=== PATIENT | female | born 1985 | race Caucasian/White ===

== ENCOUNTER 2019-01-25 09:20 | Emergency (ER) | payer OTHER ==
[2019-01-25 09:26] VITALS: RESP 18; TEMP 98.1
[2019-01-25] MEDS ORDERED: DIAZEPAM 5 MG/ML 2 ML INJ IM ONE (09:56)
[2019-01-25] MEDS ORDERED: KETOROLAC 30 MG/ML 1 ML VIAL IM STA (09:56)
--- NOTE | 2019-01-25 09:58 | ED ---
General Adult HPI - General Chief complaint: Back Pain/Injury Stated complaint: RT FLANK PAIN Time Seen by Provider: 01/25/19 09:36 Source: patient Mode of arrival: ambulatory Limitations: no limitations - History of Present Illness Initial comments: Dictation was produced using [employer] dictation software. please excuse any grammatical, word or spelling errors. Chief Complaint: 33-year-old female past medical history of fibromyalgia, and unspecified muscle spasm disorder presents with right-sided back pain. History of Present Illness: 33-year-old female presents with right-sided back pain for the last 4 days. She states that the pain radiates to her anterior right chest with radiation to the abdomen. Patient states worse with palpation and varus movements. She describes it as sharp. Denies any nausea, vomiting or abdominal symptoms. Denies any constitutional symptoms. The ROS documented in this emergency department record has been reviewed and confirmed by me. Those systems with pertinent positive or negative responses have been documented in the HPI. All other systems are other negative and/or noncontributory. PHYSICAL EXAM: General Impression: Alert and oriented x3, not in acute distress HEENT: Normocephalic atraumatic, extra-ocular movements intact, pupils equal and reactive to light bilaterally, mucous membranes moist. Cardiovascular: Heart regular rate and rhythm, S1&S2 audible, no murmurs, rubs or gallops Chest: Lungs clear to auscultation bilaterally, no rhonchi, no wheeze, no rales Abdomen: Bowel sounds present, abdomen soft, non-tender, non-distended, no organomegaly Musculoskeletal: Pulses present and equal in all extremities, no peripheral edema, tenderness to palpation over the right flank, right back and anterior chest Motor: no focal deficits noted Neurological: CN II-XII grossly intact, no focal motor or sensory deficits noted Skin: Intact with no visualized rashes Psych: Normal affect and mood ED course: 33-year-old female presents with musculoskeletal strain versus possible skeletal spasm. Vital signs upon arrival shows heart rate of 106, rest of vital signs within acceptable limits. Patient has bilateral tubal ligation. Labs and imaging obtained showing no acute processes. Patient given IM analgesia. She is observed in emergency department with improvement of symptoms. Patient told to follow up PCP. Return parameters discussed. EKG interpretation: Ventricular rate 3, normal sinus rhythm, AZ interval 150, QS 90, QTc 458. No AZ prolongation, no QTC prolongation, no ST or T-wave changes noted. Overall, this EKG is unremarkable - Related Data Home Medications Medication Instructions Recorded Confirmed Ibuprofen [Motrin Ib] 800 mg PO Q6H PRN 01/25/19 01/25/19 Previous Rx's Medication Instructions Recorded Acetaminophen [Tylenol] 1,000 mg PO Q4-6H PRN #24 tab 01/25/19 Ibuprofen [Motrin] 600 mg PO Q6HR PRN #24 tab 01/25/19 Allergies Allergy/AdvReac Type Severity Reaction Status Date / Time tizanidine HCl Allergy Unknown Verified 01/25/19 09:51 [From Zanaflex] tramadol Allergy Unknown Verified 01/25/19 09:51 vilazodone HCl [From Viibryd] Allergy Unknown Verified 01/25/19 09:51 Review of Systems ROS Statement: Those systems with pertinent positive or pertinent negative responses have been documented in the HPI. ROS Other: All systems not noted in ROS Statement are negative. Past Medical History Past Medical History: Fibromyalgia, Osteoarthritis (OA), Thyroid Disorder Additional Past Medical History / Comment(s): DJD chronic back pain, gout, IBS. restless leg syndrome History of Any Multi-Drug Resistant Organisms: None Reported Past Surgical History: Section, Tubal Ligation Past Psychological History: Anxiety, Depression Smoking Status: Current every day smoker Past Alcohol Use History: Occasional Past Drug Use History: None Reported General Exam Limitations: no limitations Course Vital Signs 01/25/19 09:24 Temperature 98.1 F Pulse Rate 106 H Respiratory 18 Rate Blood Pressure 127/87 O2 Sat by Pulse 99 Oximetry Medical Decision Making - Lab Data Result diagrams: 01/25/19 10:03 01/25/19 10:03 Lab Results 01/25/19 01/25/19 Range/Units 10:03 10:03 WBC 10.5 (3.8-10.6) k/uL RBC 5.19 (3.80-5.40) m/uL Hgb 15.4 (11.4-16.0) gm/dL Hct 45.4 (34.0-46.0) % MCV 87.5 (80.0-100.0) fL MCH 29.7 (25.0-35.0) pg MCHC 33.9 (31.0-37.0) g/dL RDW 12.6 (11.5-15.5) % Plt Count 377 (150-450) k/uL Neutrophils % 70 % Lymphocytes % 19 % Monocytes % 5 % Eosinophils % 4 % Basophils % 1 % Neutrophils # 7.3 (1.3-7.7) k/uL Lymphocytes # 2.0 (1.0-4.8) k/uL Monocytes # 0.5 (0-1.0) k/uL Eosinophils # 0.5 (0-0.7) k/uL Basophils # 0.1 (0-0.2) k/uL Sodium 140 (137-145) mmol/L Potassium 4.2 (3.5-5.1) mmol/L Chloride 105 (98-107) mmol/L Carbon Dioxide 28 (22-30) mmol/L Anion Gap 7 mmol/L BUN 9 (7-17) mg/dL Creatinine 0.70 (0.52-1.04) mg/dL Est GFR (CKD-EPI)AfAm >90 (>60 ml/min/1.73 sqM) Est GFR (CKD-EPI)NonAf >90 (>60 ml/min/1.73 sqM) Glucose 99 (74-99) mg/dL Calcium 9.8 (8.4-10.2) mg/dL Total Bilirubin 0.5 (0.2-1.3) mg/dL AST 14 (14-36) U/L ALT 25 (9-52) U/L Alkaline Phosphatase 56 (38-126) U/L Total Protein 7.4 (6.3-8.2) g/dL Albumin 4.2 (3.5-5.0) g/dL Disposition Clinical Impression: Back strain Disposition: HOME SELF-CARE Condition: Good Instructions (If sedation given, give patient instructions): Acute Low Back Pain (ED) Prescriptions: Ibuprofen [Motrin] 600 mg PO Q6HR PRN #24 tab PRN Reason: Pain Acetaminophen [Tylenol] 1,000 mg PO Q4-6H PRN #24 tab PRN Reason: Pain Is patient prescribed a controlled substance at d/c from ED?: No Referrals: Jason Melvin MD [Primary Care Provider] - 1-2 days Time of Disposition: 11:46
[2019-01-25 10:20] LABS: Basophils # (A) 0.1 k/uL (0-0.2); Basophils % (A) 1 %; Eosinophils # (A) 0.5 k/uL (0-0.7); Eosinophils % (A) 4 %; HCT 45.4 % (34.0-46.0); HGB 15.4 gm/dL (11.4-16.0); Lymphocytes % (A) 19 %; MCH 29.7 pg (25.0-35.0); MCHC 33.9 g/dL (31.0-37.0); MCV 87.5 fL (80.0-100.0); Mean Platelet Volume 6.8; Monocytes # (A) 0.5 k/uL (0-1.0); Monocytes % (A) 5 %; Neutrophils # (A) 7.3 k/uL (1.3-7.7); Neutrophils % (A) 70 %; Platelet Count 377 k/uL (150-450); RBC 5.19 m/uL (3.80-5.40); RDW 12.6 % (11.5-15.5); WBC 10.5 k/uL (3.8-10.6)
[2019-01-25 10:28] LABS: ALT 25 U/L (9-52); AST 14 U/L (14-36); Albumin 4.2 g/dL (3.5-5.0); Alkaline Phosphatase 56 U/L (38-126); Anion Gap 7 mmol/L; Blood Urea Nitrogen 9 mg/dL (7-17); Calcium 9.8 mg/dL (8.4-10.2); Carbon Dioxide 28 mmol/L (22-30); Chloride 105 mmol/L (98-107); Glucose 99 mg/dL (74-99); Potassium 4.2 mmol/L (3.5-5.1); Sodium 140 mmol/L (137-145); Total Bilirubin 0.5 mg/dL (0.2-1.3); Total Protein 7.4 g/dL (6.3-8.2)
--- NOTE | 2019-01-25 10:41 | XR ---
EXAMINATION TYPE: XR chest 2V DATE OF EXAM: 01/25/2019 COMPARISON: NONE HISTORY: Chest pain TECHNIQUE: Frontal and lateral views of the chest are obtained. FINDINGS: There is no focal air space opacity, pleural effusion, or pneumothorax seen. The cardiac silhouette size is within normal limits. There is a mild spinal curvature. There is thoracic spondylo sis. The osseous structures are intact. IMPRESSION: No acute cardiopulmonary process.
[2019-01-25] MEDS ORDERED: MORPHINE SULFATE 4 MG/ML SYRINGE IVP STA (11:04)
[2019-01-25] MEDS ORDERED: ONDANSETRON 4 MG ODT STARTER PACK 2 TAB BTL PO STA (12:10)
[2019-01-25 12:26] VITALS: BP 137/92; PULSE 82
== END 2019-01-25 12:24 | disposition home or self-care (01) ==
LOC: EC 09:20
DX: S39.012A Strain of muscle, fascia and tendon of lower back, initial encounter (principal); F17.200 Nicotine dependence, unspecified, uncomplicated; Z88.5 Allergy status to narcotic agent; Z88.8 Allergy status to other drugs, medicaments and biological substances; Z98.51 Tubal ligation status
CPT/HCPCS: 36415; 80053; 85025; 71046; 99284; 96374; 96372 ×2; J2270; J3360; J1885; S0119

== ENCOUNTER 2021-06-21 16:41 | Emergency (ER) | payer OTHER ==
--- NOTE | 2021-06-21 17:44 | XR ---
EXAMINATION TYPE: XR knee complete RT DATE OF EXAM: 06/21/2021 COMPARISON: NONE HISTORY: Pain TECHNIQUE: 3 views FINDINGS: There is mild spurring of the femoral and tibial condyles. I see no fracture nor dislocatio n. There is bipartite patella which is normal variant. There is small knee joint effusion. IMPRESSION: Mild osteoarthritis. No fracture.
--- NOTE | 2021-06-21 18:00 | ED ---
Lower Extremity Injury HPI - General Chief Complaint: Extremity Injury, Lower Stated Complaint: Knee injury/Fall Time Seen by Provider: 06/21/21 17:06 Source: patient Mode of arrival: ambulatory Limitations: no limitations - History of Present Illness Initial Comments: 35-year-old female presents to emergency Department with a chief complaint of right knee pain. Patient reports this occurred about 5 hour prior to arrival. States she lost control of her gait and fell forward with a right knee on the stairs. Patient reports the impact was directly to the infrapatellar region. States she took some ibuprofen at home with minimal improvement in her symptoms. States she has osteoarthritis in the knee so it is typical for her to have pain there but now it is exacerbated. States the pain is worse with weightbearing and range of motion. She denies any erythema or ecchymosis to the region. - Related Data Home Medications Medication Instructions Recorded Confirmed Ibuprofen [Motrin Ib] 800 mg PO Q6H PRN 01/25/19 01/25/19 Previous Rx's Medication Instructions Recorded Acetaminophen [Tylenol] 1,000 mg PO Q4-6H PRN #24 tab 01/25/19 Ibuprofen [Motrin] 600 mg PO Q6HR PRN #24 tab 01/25/19 Allergies Allergy/AdvReac Type Severity Reaction Status Date / Time latex Allergy Rash/Hives Verified 06/21/21 16:46 tizanidine HCl Allergy Unknown Verified 01/25/19 09:51 [From Zanaflex] tramadol Allergy Unknown Verified 01/25/19 09:51 vilazodone HCl [From Viibryd] Allergy Unknown Verified 01/25/19 09:51 Review of Systems ROS Statement: Those systems with pertinent positive or pertinent negative responses have been documented in the HPI. ROS Other: All systems not noted in ROS Statement are negative. Past Medical History Past Medical History: Fibromyalgia, Osteoarthritis (OA), Thyroid Disorder Additional Past Medical History / Comment(s): DJD chronic back pain, gout, IBS. restless leg syndrome History of Any Multi-Drug Resistant Organisms: None Reported Past Surgical History: Section, Tubal Ligation Past Psychological History: Anxiety, Depression Past Alcohol Use History: Occasional Past Drug Use History: None Reported General Exam Limitations: no limitations General appearance: alert, in no apparent distress, obese Head exam: Present: atraumatic, normocephalic, normal inspection Eye exam: Present: normal appearance, EOMI Pupils: Present: normal accommodation ENT exam: Present: normal exam, normal oropharynx, mucous membranes moist Neck exam: Present: normal inspection, full ROM. Absent: tenderness, lymphadenopathy Respiratory exam: Present: normal lung sounds bilaterally. Absent: respiratory distress Cardiovascular Exam: Present: regular rate, normal rhythm, normal heart sounds. Absent: systolic murmur Extremities exam: Present: normal inspection (Excess body habitus), full ROM, tenderness (Infrapatellar tenderness), normal capillary refill, other (Palpable DP and PT bilaterally.). Absent: pedal edema, joint swelling, calf tenderness Back exam: Present: normal inspection, full ROM. Absent: tenderness Neurological exam: Present: alert, oriented X3 Psychiatric exam: Present: normal affect, normal mood Skin exam: Present: warm, dry, intact, normal color Course Vital Signs 06/21/21 16:43 Temperature 99.3 F Pulse Rate 106 H Respiratory 16 Rate Blood Pressure 149/96 O2 Sat by Pulse 99 Oximetry Medical Decision Making - Medical Decision Making 35-year-old feel presents to emergency Department with a chief complaint of right knee pain. On physical examination, patient is neurovascularly intact. X-ray shows mild osteoarthritis but no other acute findings. I advised the patient on conservative management. Orthopedic follow-up. Return parameters discussed with patient was understanding and agreeable. Disposition Clinical Impression: Contusion of right knee Disposition: HOME SELF-CARE Condition: Stable Instructions (If sedation given, give patient instructions): Knee Pain (ED) Additional Instructions: Follow-up with an [facility] specialist. Return to emergency department if symptoms worsen. Is patient prescribed a controlled substance at d/c from ED?: No Referrals: Jason Melvin MD [Primary Care Provider] - 1-2 days Nnamdi Sewell DO [Doctor of Osteopathic Medicine] - 1-2 days Time of Disposition: 18:00
[2021-06-21 18:22] VITALS: BP 142/63; PULSE 93; RESP 18; TEMP 97.8
== END 2021-06-21 18:22 | disposition home or self-care (01) ==
LOC: EC 16:41
DX: S80.01XA Contusion of right knee, initial encounter (principal); Z79.1 Long term (current) use of non-steroidal anti-inflammatories (NSAID); Z88.5 Allergy status to narcotic agent; Z88.8 Allergy status to other drugs, medicaments and biological substances; E66.9 Obesity, unspecified; Z68.42 Body mass index [BMI] 45.0-49.9, adult; W10.9XXA Fall (on) (from) unspecified stairs and steps, initial encounter
CPT/HCPCS: 99284

== ENCOUNTER → 2021-08-28 | Outpatient (CLI) | payer OTHER ==
--- NOTE | 2021-08-28 13:25 | MR ---
EXAMINATION TYPE: MR knee RT wo con DATE OF EXAM: 08/28/2021 COMPARISON: Outside radiograph 07/17/2021 HISTORY: 36-year-old female Right knee pain, fall due to knee weakness TECHNIQUE: Multiplanar, multisequence imaging of the right knee is performed without IV contrast. FINDINGS: The exam is motion limited. There is also diminished atqysr-sn-ssffs ratio due to large body habitus. Allowing for these limitations, slightly thin but intact ACL is seen. The ACL is intact. There is margo e edematous change on either side of the intact MCL. LCL complex appears grossly intact. There is mild diffuse thinning of medial compartment articular cartilage volume with mild marginal sp urring. There is some abnormal signal within the body of the medial meniscus on sagittal series sligh tly small appearance on coronal series suggesting underlying tear though this is not well characteriz ed due to the degree of motion. There is moderate to severe irregular cartilage loss along the medial weightbearing aspect of the lat eral femoral condyle. No clear lateral meniscal tear identified allowing for motion artifact. There is severe degenerative change along the lateral aspect of the patellofemoral compartment with c omplete loss of articular cartilage along the lateral patellar facet. Shallow trochlear groove with l ateral patellar translation and degenerative subchondral marrow signal change/edema within the patell a. There is a moderate knee joint effusion with small loose body measuring up to 8 mm within the lateral gutter of the suprapatellar pouch. Mild synovial thickening is present. No sizable Gregory's cyst. Mild generalized soft tissue swelling. Extensor mechanism appears intact. Normal popliteal artery anatomy. Mild generalized muscle atrophy. Patchy red marrow in the seen in setting of anemia, obesity, smoking, chronic disease. IMPRESSION: 1. Exam limited by large body habitus and motion artifact. 2. Suspect a grade 1 MCL sprain. 3. Some increased signal within the body of the medial meniscus on sagittal series and slightly dimin utive appearance on the coronal series. Findings suggest underlying tear involving the body of the me dial meniscus though it is not well characterized due to extent of motion. 4. Tricompartmental osteoarthrosis. There is severe full-thickness cartilage loss along the lateral p atellar facet. Given lateral patellar translation and shallow trochlear groove, correlate for chronic patellar tracking disorder. 5. Moderate to severe focal cartilage loss along the mid weightbearing aspect of the lateral compartm ent. Only mild diffuse thinning of articular cartilage in the medial compartment. 6. Moderate knee joint effusion, mild chronic synovitis, and small loose bodies in the lateral gutter measuring up to 8 mm.
== END | disposition home or self-care (01) ==
LOC: RADMRIMAIN 11:04
PROVIDERS: ATTEND Orthopaedic Surgery
DX: M25.461 Effusion, right knee (principal)

== ENCOUNTER → 2022-04-10 | Outpatient (CLI) | payer OTHER ==
[2022-04-10 18:27] LABS: T4, Free (Free Thyroxine) 1.01 ng/dL (0.800-1.800)
== END | disposition home or self-care (01) ==
LOC: LABWHC1 10:24
PROVIDERS: ATTEND Family Medicine
DX: E03.8 Other specified hypothyroidism (principal); R42 Dizziness and giddiness; R55 Syncope and collapse; R77.1 Abnormality of globulin
CPT/HCPCS: 36415; 84165; 84439; 84443; 84481

== ENCOUNTER → 2022-04-11 | Outpatient (CLI) | payer OTHER ==
--- NOTE | 2022-04-25 12:54 | P.HOLTER ---
24 Hour Holter monitor note: Patient wore a Holter monitor for 24 hrs from 04/11/2022 through 04/12/2022. Findings: Patient's baseline heart rate was sinus rhythm. There were no signficant atrial fibrillation, atrial flutter, or ventricular tachycardia episodes. There were no significant pauses greater than 2 seconds. Patient's minimum heart rate was 46 bpm. Patient's maximum heart rate was 146 bpm. Patient's average heart rate was 85 bpm. There were a total of 4 PVCs There were 2 PACs Patient activated events corresponded with sinus rhythm Conclusions: 24 hour Holter monitor showing sinus rhythm with rare asymptomatic PVCs and PACs. Patient activated events corresponding with sinus rhythm.
== END | disposition home or self-care (01) ==
LOC: RADECHMAIN 07:14
PROVIDERS: ATTEND Family Medicine
DX: R42 Dizziness and giddiness (principal)
CPT/HCPCS: 93225; 93226

== ENCOUNTER → 2022-04-22 | Outpatient (CLI) | payer OTHER ==
--- NOTE | 2022-04-22 09:13 | NM ---
Nuclear medicine hepatobiliary scan. HISTORY: Pain. DOSAGE: The patient received 8 ounces of ensure plus and 5.2 mCi of Technetium 99m Choletec. FINDINGS: There is normal hepatic extraction. The gallbladder is seen by 10 minutes. There Ejecti on fraction is 5%. IMPRESSION: 1. Abnormal ejection fraction of 5% correlate for biliary dyskinesia.
== END | disposition home or self-care (01) ==
LOC: RADNMMAIN 06:47
PROVIDERS: ATTEND Surgery Plastic and Reconstructive Surgery
DX: K83.9 Disease of biliary tract, unspecified (principal)
CPT/HCPCS: 78226; A9537

== ENCOUNTER 2022-07-11 07:48 | Day surgery (SDC) | payer OTHER ==
[2022-07-10 10:29] VITALS: BMI 52.7
--- NOTE | 2022-07-11 06:47 | P.GSHP ---
History of Present Illness H&P Date: 07/11/22 CHIEF COMPLAINT: Cholecystitis HISTORY OF PRESENT ILLNESS: The patient is a 36-year-old female who presents with history of epigastric including right upper quadrant abdominal pain. She underwent diagnostic studies for her gallbladder. Separately her clinical picture was consistent with cholecystitis. Now she presents for surgical intervention. PAST MEDICAL HISTORY: Please see list PAST SURGICAL HISTORY: Please see list MEDICATIONS: Please see list ALLERGIES: Please see list SOCIAL HISTORY: Please see list FAMILY HISTORY: Please see list REVIEW OF ORGAN SYSTEMS: CONSTITUTIONAL: No reports of fevers or chills. HEENT: Denies any troubles with the vision or hearing. ENDOCRINE: No reports of hypothyroidism. No diabetes. RESPIRATORY: No recent pneumonias. CARDIOVASCULAR: Denies chest pain or palpitations GI: No blood in stools or constipation. MUSCULOSKELETAL: Has occasional joint pain including back pain. NEURO: No seizure disorders or headaches. No recent stroke. PSYCH: No depression or suicidal ideation. GENITOURINARY: No active blood in urine. No urinary hesitancy. HEMATOLOGIC: No personal or family history of DVTs or pulmonary emboli. SKIN: No skin cancer. PHYSICAL EXAM: VITAL SIGNS: Afebrile vital signs stable GENERAL: Well-developed pleasant in no acute distress. HEENT: No scleral icterus. Extraocular movements grossly intact. Moist buccal mucosa. NECK: Supple without lymphadenopathy. CHEST: Unlabored respirations. Equal bilateral excursions. CARDIOVASCULAR: Regular rate regular rhythm rhythm. Distal 2+ pulses. ABDOMEN: Soft, nondistended. Tender along the epigastrium and right upper quadrant. MUSCULOSKELETAL: No clubbing, cyanosis, or edema. NEURO: Cranial nerves II to XII within normal limits. No focal or lateralizing signs. PSYCH: Alert and oriented to person, place and time. SKIN: Well-perfused good skin turgor. ASSESSMENT: 1. Epigastric and right upper quadrant abdominal pain 2. Chronic cholecystitis 3. Symptomatic gallstones. PLAN: 1. Will need a robotic cholecystectomy possible open. Benefits and risks were described. 2. Heparin for DVT prophylaxis 5000 units. 3. Antibiotic prophylaxis. Past Medical History Past Medical History: Fibromyalgia, Osteoarthritis (OA), Skin Disorder, Thyroid Disorder Additional Past Medical History / Comment(s): DJD , chronic back pain, gout, IBS. restless leg syndrome, HIATAL HERNIA, ECZEMA-CURRENT ISSUES ON PINKY FINGER, GALLBLADDER PROBLEMS History of Any Multi-Drug Resistant Organisms: None Reported Past Surgical History: Section, Tubal Ligation Additional Past Surgical History / Comment(s): COLONOSCOPY, EGD Past Anesthesia/Blood Transfusion Reactions: No Reported Reaction Smoking Status: Former smoker - Past Family History Mother Family Medical History: No Reported History Medications and Allergies Home Medications Medication Instructions Recorded Confirmed Type Acetaminophen [Tylenol] 1,000 mg PO Q4-6H PRN #24 tab 01/25/19 07/10/22 Rx Famotidine 40 mg PO DAILY 05/12/22 07/10/22 History Levothyroxine Sodium [Synthroid] 75 mcg PO DAILY 05/12/22 07/10/22 History Melatonin [Melatonin Chew] 2.5 mg PO HS 05/12/22 07/10/22 History Pantoprazole [Protonix] 40 mg PO DAILY #14 tab 05/21/22 07/10/22 Rx Celecoxib [CeleBREX] 200 mg PO DAILY 07/10/22 07/10/22 History Allergies Allergy/AdvReac Type Severity Reaction Status Date / Time latex Allergy Rash/Hives Verified 05/19/22 14:43 tizanidine HCl Allergy MIGRAINES Verified 07/10/22 10:13 [From Zanaflex] tramadol Allergy INCREASE Verified 07/10/22 10:13 ANXIETY/SLEEPLESSNESS vilazodone HCl [From Viibryd] Allergy BOUTS OF Verified 07/10/22 10:13 RAGE NF-COLD Allergy Rash/Hives- Uncoded 07/10/22 10:13
[~2022-07-11 07:48] MED LIST: ACETAMINOPHEN TAB 500 MG TAB PO STA; DEXAMETHASONE SOD PHOSPHATE 4 MG/ML 1 ML VIAL IV ONE; HEPARIN SODIUM,PORCINE/PF 5,000 UNIT/0.5 ML SYRINGE SQ PRN; INDOCYANINE GREEN 25 MG VIAL IV STA; LACTATED RINGERS 1,000 ML IV SCH; LIDOCAINE 1% (10MG/ML) FOR IV START INTRADERMA PRN; MELOXICAM 7.5 MG TAB PO PRN; ONDANSETRON 4 MG/2 ML VIAL IVP ONE; SCOPOLAMINE 1 MG/72 HR PATCH TRANSDERM ONE; ceFAZolin 3 GM in SODIUM CHLORIDE 0.9% 100 ML IVPB PRN
[2022-07-11 08:40] LABS: Basophils # (A) 0.1 k/uL (0-0.2); Basophils % (A) 1 %; Eosinophils # (A) 0.3 k/uL (0-0.7); Eosinophils % (A) 3 %; HCT 40.4 % (34.0-46.0); HGB 13.8 gm/dL (11.4-16.0); Lymphocytes # (A) 2.2 k/uL (1.0-4.8); Lymphocytes % (A) 22 %; MCH 29.9 pg (25.0-35.0); MCHC 34.2 g/dL (31.0-37.0); MCV 87.4 fL (80.0-100.0); Mean Platelet Volume 7.8; Monocytes # (A) 0.6 k/uL (0-1.0); Monocytes % (A) 6 %; Neutrophils # (A) 6.7 k/uL (1.3-7.7); Neutrophils % (A) 67 %; Platelet Count 345 k/uL (150-450); RBC 4.63 m/uL (3.80-5.40); RDW 12.5 % (11.5-15.5); WBC 10.1 k/uL (3.8-10.6)
[2022-07-11 08:50] LABS: ALT 23 U/L (4-34); AST 21 U/L (14-36); African American GFR (CKD) >90 (>60 ml/min/1.73 sqM); Alkaline Phosphatase 53 U/L (38-126); Anion Gap 8 mmol/L; Blood Urea Nitrogen 11 mg/dL (7-17); Calcium 8.8 mg/dL (8.4-10.2); Carbon Dioxide 27 mmol/L (22-30); Chloride 104 mmol/L (98-107); Glucose 91 mg/dL (74-99); Non-African American GFR(CKD) >90 (>60 ml/min/1.73 sqM); Potassium 4.1 mmol/L (3.5-5.1); Sodium 139 mmol/L (137-145); Total Bilirubin 0.6 mg/dL (0.2-1.3); Total Protein 6.9 g/dL (6.3-8.2)
[2022-07-11] MEDS ORDERED: LIDOCAINE 2% INJ 20 MG/ML (2 ML VIAL) ONE (08:58)
[2022-07-11] MEDS ORDERED: INDOCYANINE GREEN 25 MG VIAL IV ONE (08:58)
[2022-07-11] MEDS ORDERED: HYDROmorphone (PF) 1 MG/ML ONE (08:58)
[2022-07-11] MEDS ORDERED: fentaNYL (PF) 50 MCG/ML 2 ML AMP ONE (08:58)
[2022-07-11] MEDS ORDERED: SUCCINYLCHOLINE CHLORIDE 200 MG/10 ML VIAL IV ONE (08:58)
[2022-07-11] MEDS ORDERED: MIDAZOLAM 2 MG/2 ML VIAL ONE (08:58)
[2022-07-11] MEDS ORDERED: ROCURONIUM 10 MG/ML (5 ML VIAL) IV ONE (08:58)
[2022-07-11] MEDS ORDERED: NEOSTIGMINE 1 MG/ML 10 ML VIAL ONE (08:58)
[2022-07-11] MEDS ORDERED: KETAMINE 10 MG/ML 20 ML VIAL ONE (08:58)
[2022-07-11] MEDS ORDERED: PROPOFOL 10 MG/ML 20 ML VIAL IV ONE (08:58)
[2022-07-11] MEDS ORDERED: GLYCOPYRROLATE 0.2 MG/ML 2 ML VIAL ONE (08:58)
[2022-07-11] MEDS ORDERED: BUPIVACAINE (PF) 0.25% 30 ML VIAL SQ ONE (09:27)
[2022-07-11] MEDS ORDERED: LACTATED RINGERS 1,000 ML IV ONE (09:59)
--- NOTE | 2022-07-11 10:18 | P.OP ---
Date of Procedure: 07/11/22 Description of Procedure: SURGEON: CATHY GUTIERREZ MD PREOPERATIVE DIAGNOSES: 1. Chronic cholecystitis 2. Right upper quadrant abdominal pain 3. Depressive disorder 4. Gastroesophageal reflux disease 5. Morbid obesity due to excess calories, BMI 56.2 6. Hypothyroidism 7. Fibromyalgia POSTOPERATIVE DIAGNOSES: 1. Chronic cholecystitis 2. Right upper quadrant abdominal pain 3. Depressive disorder 4. Gastroesophageal reflux disease 5. Hepatomegaly with fatty liver disease 6. Morbid obesity due to excess calories, BMI 56.2 7. Early cirrhosis of the liver 8. Hypothyroidism 9. Fibromyalgia OPERATION: Robotic-assisted da Hugo Xi laparoscopic cholecystectomy, multiport with FIREFLY ESTIMATED BLOOD LOSS: 5 mL. SPECIMENS REMOVED: Gallbladder. COMPLICATIONS: None. OPERATIVE FINDINGS: 1. Severe hepatomegaly with fatty liver disease adding complexity to the case. INDICATIONS: The patient is a 36-year-old female who presents with right upper quadrant abdominal pain and cholecystitis. Robotic assisted laparoscopic approach was described. Benefits and risks of the procedure including but not limited to bleeding, infection, injury to the biliary tree was described. Informed consent was obtained. DESCRIPTION OF PROCEDURE: Patient was brought to the operating room, placed in supine position. After general induction, the abdomen had been prepped and draped in standard sterile fashion. The robotic da Hugo XI system was primed. After a timeout protocol was performed, the patient had been prepped and draped in standard sterile fashion. The patient was injected with indocyanine green. A 5 mm 0 degrees laparoscopic trocar entry was performed along the left upper quadrant. The abdomen insufflated to 15 mmHg pressure which was tolerated well. Diagnostic laparoscopy demonstrated no injury to bowel viscera or mesentery. The liver surface was unremarkable. Next, two 8 mm robotic ports were placed along the right upper abdomen. The camera 8-mm port was maintained along the epigastrium. Another 8 mm port was placed along the left upper abdominal wall after exchanging the 5 mm port. Please note that the ports were placed at least 10 to 15 cm away from the target anatomy of the gallbladder. The robot was docked along the left lateral abdomen. The patient was repositioned in reverse Trendelenburg position. Using a grasper for arm 3, a grasper for arm 4, including hook cautery for arm 1, the robotic system was docked and primed as described. Instruments were interchanged by the sales service assistant including hook cautery, Bovie cautery and clip appliers. I had sat at the console. Severe hepatomegaly with fatty liver disease was identified adding complexity to the case. Next attention was brought to the infundibulum and cystic structures. The infundibulum and cystic duct were dissected free from surrounding tissues. The cystic duct was isolated. FIREFLY was used to identify the cystic artery and cystic structures. A critical view of safety was obtained. Large PLASTIC clips were used throughout the entire case. Using a clip registry rn, 2 clips were placed at the junction of the infundibulum and cystic duct. The cystic duct was divided between clips. Next, the cystic artery was similarly clipped and cauterized. Electro-Bovie cautery was used to remove the gallbladder from the hepatic fossa. Hemostasis was checked and found to be adequate. The robot was undocked. I re-scrubbed into the case. Using a 10 mm Endo Catch bag via the left upper quadrant incision, the specimen was removed from the abdominal cavity. All pneumoperitoneum instruments were evacuated from the abdominal cavity. The incisions were reapproximated using 4-0 Monocryl in an interrupted subcuticular fashion. Please note along the trocar sites, local anesthetic was placed as a field block prior to insertion of all instruments. Liquid glue was applied to the skin. At the end of the procedure needle, sponge, and instrument count had been verified correct by the surgical instrument maker. The patient was transferred to postanesthesia care unit in stable condition. Plan - Discharge Summary Discharge Rx Participant: No New Discharge Prescriptions: New Acetaminophen Tab [Tylenol Tab] 1,000 mg PO Q6HR PRN #30 tablet PRN Reason: Pain RX: Simethicone [Gas-X] 125 mg PO AC-TID PRN #20 capsule PRN Reason: Pain RX: Ibuprofen [Motrin] 600 mg PO Q8HR PRN #30 tab PRN Reason: Pain Continue RX: Acetaminophen [Tylenol] 1,000 mg PO Q4-6H PRN #24 tab PRN Reason: Pain RX: Melatonin [Melatonin Chew] 2.5 mg PO HS RX: Famotidine 40 mg PO DAILY RX: Levothyroxine Sodium [Synthroid] 75 mcg PO DAILY RX: Pantoprazole [Protonix] 40 mg PO DAILY #14 tab RX: Celecoxib [CeleBREX] 200 mg PO DAILY Discharge Medication List RX: Acetaminophen [Tylenol] 1,000 mg PO Q4-6H PRN #24 tab 01/25/19 [Rx] RX: Famotidine 40 mg PO DAILY 05/12/22 [History] RX: Levothyroxine Sodium [Synthroid] 75 mcg PO DAILY 05/12/22 [History] RX: Melatonin [Melatonin Chew] 2.5 mg PO HS 05/12/22 [History] RX: Pantoprazole [Protonix] 40 mg PO DAILY #14 tab 05/21/22 [Rx] RX: Celecoxib [CeleBREX] 200 mg PO DAILY 07/10/22 [History] Acetaminophen Tab [Tylenol Tab] 1,000 mg PO Q6HR PRN #30 tablet 07/11/22 [Rx] RX: Ibuprofen [Motrin] 600 mg PO Q8HR PRN #30 tab 07/11/22 [Rx] RX: Simethicone [Gas-X] 125 mg PO AC-TID PRN #20 capsule 07/11/22 [Rx] Follow up Appointment(s)/Referral(s): Cathy Gutierrez MD [STAFF PHYSICIAN] - 07/15/22 (Telehealth) Patient Instructions/Handouts: *[facility] - Laparoscopic Cholecystectomy Discharge Instructions, Low Fat Diet (DC), How to Stop Smoking (DC), *[facility] - Managing Your Pain After Surgery Without Opioids Activity/Diet/Wound Care/Special Instructions: Recommend low-fat diet for the next 2 days. No lifting over 10 pounds in 2 weeks until Jul 25. May shower. No bath tub soaks for two weeks until Jul 25. Diet as tolerated. Use Tylenol, simethicone and ibuprofen or Aleve scheduled for the next 24-48 hours for best pain relief. Use ice along incisions for today to prevent swelling. Discharge Disposition: HOME SELF-CARE
[2022-07-11 10:25] VITALS: TEMP 97.5
[2022-07-11] MEDS: HYDROmorphone 0.5 MG/0.5 ML SYRINGE IVP PRN ×3 (10:27→10:57)
[2022-07-11] MEDS ORDERED: KETOROLAC 15 MG/ML 1 ML VIAL IVP ONE (10:36)
[2022-07-11 11:28] VITALS: RESP 20
[2022-07-11 12:01] VITALS: BP 124/65; PULSE 66
== END 2022-07-11 13:00 | disposition home or self-care (01) ==
LOC: OR 07:48
PROVIDERS: ATTEND Surgery Plastic and Reconstructive Surgery
DX: K80.10 Calculus of gallbladder with chronic cholecystitis without obstruction (principal); M79.7 Fibromyalgia; M19.90 Unspecified osteoarthritis, unspecified site; L30.9 Dermatitis, unspecified; K44.9 Diaphragmatic hernia without obstruction or gangrene; K82.9 Disease of gallbladder, unspecified; K58.9 Irritable bowel syndrome, unspecified; G89.29 Other chronic pain; K21.9 Gastro-esophageal reflux disease without esophagitis; E66.01 Morbid (severe) obesity due to excess calories; Z68.43 Body mass index [BMI] 50.0-59.9, adult; M54.9 Dorsalgia, unspecified; M10.9 Gout, unspecified; Z98.891 History of uterine scar from previous surgery; Z98.51 Tubal ligation status; Z98.890 Other specified postprocedural states; Z87.891 Personal history of nicotine dependence; Z79.1 Long term (current) use of non-steroidal anti-inflammatories (NSAID); Z79.890 Hormone replacement therapy; Z79.899 Other long term (current) drug therapy; Z88.5 Allergy status to narcotic agent; Z88.8 Allergy status to other drugs, medicaments and biological substances; Z91.040 Latex allergy status
CPT/HCPCS: 81025; 88304; 80053; 85025; 47563; J2250; J0330; J1100; J2710; J0690; J2405; J3010; J1170 ×2; J1885; J2704; J1644; J2001

== ENCOUNTER 2022-09-21 16:00 | Emergency (ER) | payer OTHER ==
[2022-09-21 16:04] VITALS: BP 142/82; PULSE 88; RESP 20; TEMP 98.4
[2022-09-21] MEDS ORDERED: SODIUM CHLORIDE 0.9% 1,000 ML IV STA (16:23)
[2022-09-21] MEDS ORDERED: ONDANSETRON 4 MG/2 ML VIAL IVP STA (16:23)
[2022-09-21] MEDS ORDERED: KETOROLAC 15 MG/ML 1 ML VIAL IVP STA (16:23)
--- NOTE | 2022-09-21 16:30 | ED ---
General Adult HPI - General Chief complaint: Fever Stated complaint: Diarrhea,Fever Time Seen by Provider: 09/21/22 16:08 Source: patient, RN notes reviewed Mode of arrival: ambulatory Limitations: no limitations - History of Present Illness Initial comments: 37-year-old female presents to the emergency department for evaluation of fever and body aches, onset Thursday night. Patient states she went to bed feeling fine, but woke up during the middle of the night with body aches. She has since had multiple episodes of diarrhea daily and continued to have intermittent fever and body aches. States she has an occasional productive cough. States she took Tylenol for her fever yesterday with some improvement. Had to leave work Thursday due to worsening of symptoms. Denies headache, dizziness, chest pain, abdominal pain, vomiting, dysuria, or hematuria. - Related Data Home Medications Medication Instructions Recorded Confirmed Famotidine 40 mg PO DAILY 05/12/22 07/11/22 Levothyroxine Sodium [Synthroid] 75 mcg PO DAILY 05/12/22 07/11/22 Melatonin [Melatonin Chew] 2.5 mg PO HS 05/12/22 07/11/22 Celecoxib [CeleBREX] 200 mg PO DAILY 07/10/22 07/11/22 Previous Rx's Medication Instructions Recorded Acetaminophen [Tylenol] 1,000 mg PO Q4-6H PRN #24 tab 01/25/19 Pantoprazole [Protonix] 40 mg PO DAILY #14 tab 05/21/22 Acetaminophen Tab [Tylenol Tab] 1,000 mg PO Q6HR PRN #30 tablet 07/11/22 Ibuprofen [Motrin] 600 mg PO Q8HR PRN #30 tab 07/11/22 Simethicone [Gas-X] 125 mg PO AC-TID PRN #20 capsule 07/11/22 Allergies Allergy/AdvReac Type Severity Reaction Status Date / Time latex Allergy Rash/Hives Verified 09/21/22 16:04 tizanidine HCl Allergy MIGRAINES Verified 09/21/22 16:04 [From Zanaflex] tramadol Allergy INCREASE Verified 09/21/22 16:04 ANXIETY/SLEEPLESSNESS vilazodone HCl [From Viibryd] Allergy BOUTS OF Verified 09/21/22 16:04 RAGE NF-COLD Allergy Rash/Hives- Uncoded 09/21/22 16:04 Review of Systems ROS Statement: Those systems with pertinent positive or pertinent negative responses have been documented in the HPI. ROS Other: All systems not noted in ROS Statement are negative. Past Medical History Past Medical History: Fibromyalgia, Osteoarthritis (OA), Skin Disorder, Thyroid Disorder Additional Past Medical History / Comment(s): DJD , chronic back pain, IBS. restless leg syndrome, HIATAL HERNIA, ECZEMA-CURRENT ISSUES ON PINKY FINGER History of Any Multi-Drug Resistant Organisms: None Reported Past Surgical History: Section, Cholecystectomy, Tubal Ligation Additional Past Surgical History / Comment(s): COLONOSCOPY, EGD Past Anesthesia/Blood Transfusion Reactions: No Reported Reaction Past Psychological History: Anxiety, Depression Smoking Status: Former smoker Past Alcohol Use History: None Reported Past Drug Use History: Marijuana - Past Family History Mother Family Medical History: No Reported History General Exam Limitations: no limitations General appearance: alert, in no apparent distress ENT exam: Present: mucous membranes moist, TM's normal bilaterally, other (or opharyngeal erythema; no lesions; mild tonsillar hypertrophy- no exudate) Neck exam: Present: normal inspection, full ROM, lymphadenopathy (some left anterior cervical LAD) Respiratory exam: Present: normal lung sounds bilaterally. Absent: respiratory distress, wheezes, rales, rhonchi, stridor Cardiovascular Exam: Present: regular rate, normal rhythm, normal heart sounds. Absent: systolic murmur, diastolic murmur, rubs, gallop, clicks GI/Abdominal exam: Present: soft, normal bowel sounds. Absent: distended, tenderness, guarding, rebound, rigid Back exam: Absent: CVA tenderness (R), CVA tenderness (L) Neurological exam: Present: alert, oriented X3, CN II-XII intact Psychiatric exam: Present: normal affect, normal mood Skin exam: Present: warm, dry, intact, normal color. Absent: rash Course Vital Signs 09/21/22 16:01 Temperature 98.4 F Pulse Rate 88 Respiratory 20 Rate Blood Pressure 142/82 O2 Sat by Pulse 98 Oximetry - Reevaluation(s) Reevaluation #1: 09/21/22 17:31 Patient updated on results. Reports some improvement with fluids and zofran. Be discharged home to follow up with PCP as needed. Quarantine instructions reviewed Medical Decision Making - Medical Decision Making 37-year-old female presents to the emergency Department with complaints of fever, body aches, and diarrhea. Upon exam, patient is well-appearing and in no acute distress. Vital signs are stable. Laboratory studies are unremarkable. Covid swab is positive. Patient was given IV fluids and Zofran with improvement. She will be discharged home with quarantine instructions and medical management. Return parameters discussed in detail. Patient verbalizes understanding and agrees with this plan. Attending: Paula. - Lab Data Result diagrams: 09/21/22 16:40 09/21/22 16:40 Lab Results 09/21/22 09/21/22 09/21/22 Range/Units 16:40 16:40 16:40 WBC 5.9 (3.8-10.6) k/uL RBC 4.56 (3.80-5.40) m/uL Hgb 13.5 (11.4-16.0) gm/dL Hct 39.8 (34.0-46.0) % MCV 87.3 (80.0-100.0) fL MCH 29.5 (25.0-35.0) pg MCHC 33.8 (31.0-37.0) g/dL RDW 12.3 (11.5-15.5) % Plt Count 295 (150-450) k/uL MPV 7.5 Neutrophils % 50 % Lymphocytes % 30 % Monocytes % 14 % Eosinophils % 2 % Basophils % 1 % Neutrophils # 3.0 (1.3-7.7) k/uL Lymphocytes # 1.7 (1.0-4.8) k/uL Monocytes # 0.8 (0-1.0) k/uL Eosinophils # 0.1 (0-0.7) k/uL Basophils # 0.0 (0-0.2) k/uL Sodium 140 (137-145) mmol/L Potassium 4.3 (3.5-5.1) mmol/L Chloride 106 (98-107) mmol/L Carbon Dioxide 28 (22-30) mmol/L Anion Gap 6 mmol/L BUN 11 (7-17) mg/dL Creatinine 0.72 (0.52-1.04) mg/dL Est GFR (CKD-EPI)AfAm >90 (>60 ml/min/1.73 sqM) Est GFR (CKD-EPI)NonAf >90 (>60 ml/min/1.73 sqM) Glucose 94 (74-99) mg/dL Calcium 8.9 (8.4-10.2) mg/dL Total Bilirubin 0.3 (0.2-1.3) mg/dL AST 29 (14-36) U/L ALT 27 (4-34) U/L Alkaline Phosphatase 50 (38-126) U/L Total Protein 7.3 (6.3-8.2) g/dL Albumin 3.9 (3.5-5.0) g/dL Coronavirus (PCR) (Not Detectd) Influenza Type A RNA Not Detected (Not Detectd) Influenza Type B (PCR) Not Detected (Not Detectd) 09/21/22 Range/Units 16:40 WBC (3.8-10.6) k/uL RBC (3.80-5.40) m/uL Hgb (11.4-16.0) gm/dL Hct (34.0-46.0) % MCV (80.0-100.0) fL MCH (25.0-35.0) pg MCHC (31.0-37.0) g/dL RDW (11.5-15.5) % Plt Count (150-450) k/uL MPV Neutrophils % % Lymphocytes % % Monocytes % % Eosinophils % % Basophils % % Neutrophils # (1.3-7.7) k/uL Lymphocytes # (1.0-4.8) k/uL Monocytes # (0-1.0) k/uL Eosinophils # (0-0.7) k/uL Basophils # (0-0.2) k/uL Sodium (137-145) mmol/L Potassium (3.5-5.1) mmol/L Chloride (98-107) mmol/L Carbon Dioxide (22-30) mmol/L Anion Gap mmol/L BUN (7-17) mg/dL Creatinine (0.52-1.04) mg/dL Est GFR (CKD-EPI)AfAm (>60 ml/min/1.73 sqM) Est GFR (CKD-EPI)NonAf (>60 ml/min/1.73 sqM) Glucose (74-99) mg/dL Calcium (8.4-10.2) mg/dL Total Bilirubin (0.2-1.3) mg/dL AST (14-36) U/L ALT (4-34) U/L Alkaline Phosphatase (38-126) U/L Total Protein (6.3-8.2) g/dL Albumin (3.5-5.0) g/dL Coronavirus (PCR) Detected A (Not Detectd) Influenza Type A RNA (Not Detectd) Influenza Type B (PCR) (Not Detectd) Disposition Clinical Impression: COVID-19 Disposition: HOME SELF-CARE Condition: Stable Instructions (If sedation given, give patient instructions): Coronavirus Disease 2019 (COVID-19) Additional Instructions: Treat fever and bodyaches by alternating Tylenol and Motrin. Increase intake of fluids. Consider electrolyte solution such as Gatorade or Powerade. Remain home for 5 days from symptom onset. May return to work on day 6 wearing a mask. Follow-up with PCP for recheck if needed. Return to the emergency department with any new, worsening or concerning symptoms. Is patient prescribed a controlled substance at d/c from ED?: No Referrals: Gaudencio Stark MD [Primary Care Provider] - 1-2 days Time of Disposition: 17:33
[2022-09-21 16:49] LABS: Basophils % (A) 1 %; Eosinophils # (A) 0.1 k/uL (0-0.7); Eosinophils % (A) 2 %; HCT 39.8 % (34.0-46.0); HGB 13.5 gm/dL (11.4-16.0); Lymphocytes # (A) 1.7 k/uL (1.0-4.8); Lymphocytes % (A) 30 %; MCH 29.5 pg (25.0-35.0); MCHC 33.8 g/dL (31.0-37.0); MCV 87.3 fL (80.0-100.0); Mean Platelet Volume 7.5; Monocytes # (A) 0.8 k/uL (0-1.0); Monocytes % (A) 14 %; Neutrophils % (A) 50 %; Platelet Count 295 k/uL (150-450); RBC 4.56 m/uL (3.80-5.40); RDW 12.3 % (11.5-15.5); WBC 5.9 k/uL (3.8-10.6)
[2022-09-21 16:58] LABS: ALT 27 U/L (4-34); AST 29 U/L (14-36); African American GFR (CKD) >90 (>60 ml/min/1.73 sqM); Albumin 3.9 g/dL (3.5-5.0); Alkaline Phosphatase 50 U/L (38-126); Anion Gap 6 mmol/L; Blood Urea Nitrogen 11 mg/dL (7-17); Calcium 8.9 mg/dL (8.4-10.2); Carbon Dioxide 28 mmol/L (22-30); Chloride 106 mmol/L (98-107); Glucose 94 mg/dL (74-99); Non-African American GFR(CKD) >90 (>60 ml/min/1.73 sqM); Potassium 4.3 mmol/L (3.5-5.1); Sodium 140 mmol/L (137-145); Total Bilirubin 0.3 mg/dL (0.2-1.3); Total Protein 7.3 g/dL (6.3-8.2)
== END 2022-09-21 19:10 | disposition home or self-care (01) ==
LOC: EC 16:00
DX: U07.1 COVID-19 (principal); M19.90 Unspecified osteoarthritis, unspecified site; E07.9 Disorder of thyroid, unspecified; F41.9 Anxiety disorder, unspecified; F32.A Depression, unspecified; F12.90 Cannabis use, unspecified, uncomplicated; Z87.891 Personal history of nicotine dependence; Z79.890 Hormone replacement therapy; Z91.040 Latex allergy status; Z88.5 Allergy status to narcotic agent; Z88.6 Allergy status to analgesic agent; Z88.8 Allergy status to other drugs, medicaments and biological substances
CPT/HCPCS: 36415; 80053; 85025; 87502; 87635; 99283; 96374; 96375; 96361; J2405; J1885